=== PATIENT | female | born 1940 | race Caucasian/White ===

== ENCOUNTER 2016-09-16 13:14 | Emergency (ER) | payer MEDICARE, OTHER ==
[2016-09-16 11:24] LABS: BASOPHILS 0.8 %; BASOPHILS ABSOLUTE 0.06 10/3/uL (0.0-0.16); EOSINOPHILS ABSOLUTE 0.29 10/3/uL (0.0-0.53); HEMATOCRIT 48.7 % (36.0-48.0); HEMOGLOBIN 16.7 g/dL (12.0-16.0); IMMATURE GRANULOCYTES 0.4 %; IMMATURE GRANULOCYTES ABSOLUTE 0.03 10/3/uL (0.0-0.11); LYMPHOCYTES 20.7 %; LYMPHOCYTES ABSOLUTE 1.49 10/3/uL (0.67-4.30); MANUAL DIFF NO %; MEAN CORPUS HGB CONC 34.3 g/dL (32.0-36.0); MEAN CORPUSCULAR HEMOGLOB 31.2 pg (26.0-34.0); MEAN PLATELET VOLUME 9.6 fL (9.2-13.0); MONOCYTES 7.6 %; MONOCYTES ABSOLUTE 0.55 10/3/uL (0.21-1.20); NEUTROPHILS 66.5 %; NEUTROPHILS ABSOLUTE 4.79 10/3/uL (2.02-8.40); PLATELET COUNT 253 10/3/uL (150-400); RBC DISTRIBUTION WIDTH 12.9 % (12.0-16.0); RED CELL COUNT 5.35 10/6/uL (4.0-5.6); WHITE BLOOD CELLS 7.2 10/3/uL (4.5-10.5)
[2016-09-16 11:38] LABS: BUN (BLOOD UREA NITROGEN) 15 MG/DL (6-23); CALCIUM, SERUM 10.3 MG/DL (8.5-10.4); CHEST PAIN PROFILE TAT 0 Hrs 20 Mins; CHLORIDE, SERUM 107 MMOL/L (96-112); CO2 (CARBON DIOXIDE) 26 MMOL/L (24-34); CREATININE 1.01 MG/DL (0.55-1.02); GFR AFRICAN AMERICAN 63 ML/MIN (>=60); GFR NON AFRICAN AMERICAN 54 ML/MIN (>=60); GLUCOSE, SERUM 106 MG/DL (60-99); SODIUM, SERUM 143 MMOL/L (135-148); TROPONIN I <0.02 NG/ML (<0.05)
[2016-09-16 11:52] LABS: INTERNATIONAL NORMAL RATI 0.9 UNITS (-)
[2016-09-16 12:34] LABS: ASCORBIC ACID (UR NOT ORDER) 40 (NEG); BILIRUBIN, URINE NEGATIVE (NEG); ER URINALYSIS TAT 0 Hrs 16 Mins; KETONE, URINE NEGATIVE (NEG); LEUKOCYTE ESTERASE(NOT OR TRACE (NEG); NITRITE (URINE) NEG (NEG); WBC (NOT ORDERED) (RFLEX) 2 (0-5)
[2016-10-18] MEDS ORDERED: ZOCOR20 PO (14:45)
[2016-10-18] MEDS ORDERED: LOP25 PO (14:45)
[2016-10-18] MEDS ORDERED: COZAAR100 MG PO (14:46)
[2016-10-18] MEDS ORDERED: NORV5 PO (14:46)
[2016-10-18] MEDS ORDERED: HALF81 PO (14:47)
[2016-10-18] MEDS ORDERED: PRILO PO (14:47)
[2016-10-18] MEDS ORDERED: VITC500 PO (14:48)
[2016-12-14] MEDS ORDERED: PROTONIX PO (15:39)
== END 2016-09-16 14:15 | disposition home or self-care (01) ==
LOC: ER 13:14
PROVIDERS: Emergency Medicine; Nurse Practitioner
DX: R55 Syncope and collapse (principal); I12.9 Hypertensive chronic kidney disease with stage 1 through stage 4 chronic kidney disease, or unspecified chronic kidney disease; N18.9 Chronic kidney disease, unspecified; Z87.442 Personal history of urinary calculi; Z90.710 Acquired absence of both cervix and uterus
CPT/HCPCS: 71020; 80048; 81001; 83735; 84484; 85025; 85610; 85730; 93005; 99284

== ENCOUNTER 2016-10-24 11:21 | Day surgery (SDC) | payer MEDICARE, OTHER ==
--- NOTE | ~2016-10-24 | EGD ---
EGD REPORT [facility] [address] [id number] NAME: LANCE DAVIS : [birth year] STATUS : REG [facility]#: [id number] AGE: 76 ADM/REG DATE : 10/24/16 MR#: [id number] REPORT SERV DATE: 10/24/16 DICTATED BY: PARUL LANDIN DATE: 10/24/16 REPORT STATUS : Draft TRANSCRIBED BY: [facility] DATE: 10/24/16 Endoscopy Center Patient Name: Lance Davis Date of : 1940 Attending MD: PARUL LANDIN MD Procedure Date No Time: 10/24/2016 Procedure: Upper GI endoscopy Indications: Epigastric abdominal pain, Heartburn, Abdominal bloating, Early satiety, Eructation, Nausea, Regurgitation, Weight loss Referring MD: CARLA SANTIAGO, ARCENIO FORD, JAMES BELCHER Medicines: Propofol per Anesthesia Complications: No immediate complications. Estimated blood loss: None. Procedure: Pre-Anesthesia Assessment: - After reviewing the risks and benefits, the patient was deemed in satisfactory condition to undergo the procedure. - Prior to the procedure, a History and Physical was performed, and patient medications and allergies were reviewed. The patient's tolerance of previous anesthesia was also reviewed. The risks and benefits of the procedure and the sedation options and risks were discussed with the patient. All questions were answered, and informed consent was obtained. Prior Anticoagulants: The patient has taken no previous anticoagulant or antiplatelet agents. ASA Grade Assessment: II - A patient with mild systemic disease. After reviewing the risks and benefits, the patient was deemed in satisfactory condition to undergo the procedure. After obtaining informed consent, the endoscope was passed under direct vision. Throughout the procedure, the patient's blood pressure, pulse, and oxygen saturations were monitored continuously. The GIF [id number] was introduced through the mouth, and advanced to the third part of duodenum. The upper GI endoscopy was accomplished without difficulty. The patient tolerated the procedure well. Findings: The examined esophagus was normal. Diffuse mild inflammation characterized by erythema and granularity was found in the gastric antrum. Biopsies were taken with a cold forceps for histology. Estimated blood loss: none. A few small sessile polyps were found in the gastric fundus. The examined duodenum was normal. Biopsies were taken with a cold EGD REPORT [address] [address] NAME: LANCE DAVIS : [birth year] STATUS : REG [facility]#: [id number] AGE: 76 ADM/REG DATE : 10/24/16 MR#: [id number] REPORT SERV DATE: 10/24/16 DICTATED BY: PARUL LANDIN DATE: 10/24/16 REPORT STATUS : Draft TRANSCRIBED BY: [facility] DATE: 10/24/16 forceps for histology. Estimated blood loss: none. Impression: - Normal esophagus. - Gastritis. Biopsied. - A few gastric polyps. - Normal examined duodenum. Biopsied. - Non-erosive esophageal reflux (NERD) disease present. Recommendation: - Discharge patient to home (ambulatory). - Resume previous diet. - Discontinue Prilosec (omeprazole) and begin Protonix (pantoprazole) 40 mg each morning. - We will arrange a gastric empyting scan. - Arrange colonscopy for weight loss and screening as it has been over 10 years. - Patient has a contact number available for emergencies. The signs and symptoms of potential delayed complications were discussed with the patient. Return to normal activities tomorrow. Written discharge instructions were provided to the patient. Procedure Code(s): --- Professional --- 03402, Esophagogastroduodenoscopy, flexible, transoral; with biopsy, single or multiple Diagnosis Code(s): --- Professional --- K29.70, Gastritis, unspecified, without bleeding K31.7, Polyp of stomach and duodenum K21.9, Gastro-esophageal reflux disease without esophagitis R10.13, Epigastric pain R12, Heartburn R14.0, Abdominal distension (gaseous) R68.81, Early satiety R14.2, Eructation R11.0, Nausea R11.10, Vomiting, unspecified R63.4, Abnormal weight loss CPT copyright 2013 [employer]. All rights reserved. The codes documented in this report are preliminary and upon nnp review may be revised to meet current compliance requirements. PARUL LANDIN MD EGD REPORT [facility] [address] [place]. [address] NAME: LANCE DAVIS : [birth year] [place]US : [place] [facility] [place] [id number] AGE: 76 ADM/REG DATE : 10/24/16 MR#: [id number] REPORT SERV DATE: 10/24/16 DICTATED BY: PARUL LANDIN DATE: 10/24/16 REPORT STATUS : Draft TRANSCRIBED BY: [employer] DATE: 10/24/16 10/24/2016 1:45 PM This report has been signed electronically. Number of Addenda: 0 Note Initiated On: 10/24/2016 1:14 PM Scope Withdrawal Time 0 hours 0 minutes 0 seconds [address] [facility] [place] [address]
[~2016-10-24 11:21] MED LIST: COZAAR100 MG PO; HALF81 PO; LOP25 PO; NORV5 PO; PRILO PO; VITC500 PO; ZOCOR20 PO
[2016-12-14] MEDS ORDERED: PROTONIX PO (15:39)
== END 2016-10-24 23:59 | disposition home or self-care (01) ==
LOC: DMU 11:21
PROVIDERS: Internal Medicine Gastroenterology
PROC: 0DB98ZX Excision of Duodenum, Via Natural or Artificial Opening Endoscopic, Diagnostic (ICD-10-PCS; 2016-10-24)
PROC: 0DB68ZX Excision of Stomach, Via Natural or Artificial Opening Endoscopic, Diagnostic (ICD-10-PCS; principal; 2016-10-24 12:30)
DX: K29.70 Gastritis, unspecified, without bleeding (principal); K31.7 Polyp of stomach and duodenum; K21.9 Gastro-esophageal reflux disease without esophagitis; R10.13 Epigastric pain; R12 Heartburn; R14.0 Abdominal distension (gaseous); R68.81 Early satiety; R14.2 Eructation; R11.10 Vomiting, unspecified; R63.4 Abnormal weight loss; I10 Essential (primary) hypertension; G47.30 Sleep apnea, unspecified; E78.00 Pure hypercholesterolemia, unspecified; Z87.442 Personal history of urinary calculi; Z79.899 Other long term (current) drug therapy; Z79.82 Long term (current) use of aspirin
CPT/HCPCS: 88305